=== PATIENT | male | born 1940 | race Caucasian/White ===

== ENCOUNTER → 2017-05-09 | Outpatient (CLI) | payer MEDICARE ==
[~2017-05-09] MED LIST: DICL1CAP4 PO; DILA2TAB4 PO; IBUP200C PO; LISI10TA PO; LOVA20TA PO; MAPA500T PO; TAMS5CAP PO; TURM1CAP6 PO
[2017-05-09 12:09] LABS: AUTOMATED NEUTROPHIL # 4.7 TH/MM3 (1.8-7.7); BASOPHIL % 0.4 % (0.0-2.0); EOSINOPHIL # 0.2 TH/MM3 (0-0.4); EOSINOPHIL % 2.1 % (0.0-4.0); HEMATOCRIT 45.2 % (39.0-51.0); HEMOGLOBIN 15.5 GM/DL (13.0-17.0); LYMPH % 24.5 % (9.0-44.0); LYMPHOCYTE # 1.8 TH/MM3 (1.0-4.8); MEAN CELL VOLUME 92.9 FL (80.0-100.0); MEAN CORPUSCULAR HEMOGLOBIN 31.8 PG (27.0-34.0); MEAN CORPUSCULAR HGB CONC 34.2 % (32.0-36.0); MEAN PLATELET VOLUME 6.9 FL (7.0-11.0); MONO % 10.2 % (0.0-8.0); MONOCYTE # 0.8 TH/MM3 (0-0.9); NEUT % 62.8 % (16.0-70.0); PLATELET COUNT 266 TH/MM3 (150-450); RED BLOOD COUNT 4.86 MIL/MM3 (4.50-5.90); WHITE BLOOD COUNT 7.4 TH/MM3 (4.0-11.0)
[2017-05-09 12:20] LABS: BILIRUBIN, URINE NEG (NEG); BLOOD, URINE NEG (NEG); GLUCOSE,URINE NEG (NEG); KETONE, URINE NEG (NEG); MUCUS URINE FEW /lpf (OCC); NITRITE,URINE NEG (NEG); PH, URINE 7.5 (5.0-8.5); URINE COLOR LIGHT-YELLOW (YELLW/STRAW); URINE LEUKOCYTE ESTERASE NEG (NEG)
[2017-05-09 12:29] LABS: ALBUMIN 4.1 GM/DL (3.4-5.0); ALT (GPT) 20 U/L (12-78); AST (GOT) 14 U/L (15-37); BICARBONATE 31.9 MEQ/L (21.0-32.0); BLOOD UREA NITROGEN 14 MG/DL (7-18); CALCIUM 9.3 MG/DL (8.5-10.1); CHLORIDE 99 MEQ/L (98-107); CREATININE 0.91 MG/DL (0.60-1.30); GLOMERULAR FILTRATION RATE 81 ML/MIN (>89); GLUCOSE,FASTING 95 MG/DL (74-99); SODIUM (NA) 134 MEQ/L (136-145)
[2017-05-09 12:32] LABS: ALKALINE PHOSPHATASE 72 U/L (45-117); TOTAL BILIRUBIN ADULT 0.4 MG/DL (0.2-1.0); TOTAL PROTEIN 7.7 GM/DL (6.4-8.2)
--- NOTE | 2017-05-09 12:39 | RADRPT ---
EXAM DATE/TIME: 05/09/2017 12:24 [facility] COMPARISON: No previous studies available for comparison. INDICATIONS : Evaluate for pneumonia, pneumothorax or communicable disease. Pre op lumbar surgery. MEDICAL HISTORY : Hypertension. SURGICAL HISTORY : None. ENCOUNTER: Initial ACUITY: 1 day PAIN SCORE: 0/10 LOCATION: Bilateral chest FINDINGS: PA and lateral views of the chest demonstrate the lungs to be symmetrically aerated without evidence of mass, infiltrate or effusion. The cardiomediastinal contours are unremarkable. Osseous structure s are intact. CONCLUSION: 1. No focal lung consolidation or effusion. No pneumothorax. Heart size within normal limits a tortuo us aorta. Mild thoracic scoliosis. Kirit Calderon MD on May 09, 2017 at 12:36 Board Certified Radiologist. This report was verified electronically.
--- NOTE | 2017-05-10 23:45 | EKG ---
Date Performed: 05/09/2017 Time Performed: 11:53:14 PTAGE: 76 years EKG: Sinus rhythm Normal ECG PREVIOUS TRACING : 10/30/2005 16.58 Compared to prior tracing no significant change DOCTOR: Zohaib Snow Interpretating Date/Time 05/10/2017 23:44:10
== END ==
LOC: CPRE 11:29
PROVIDERS: ATTEND Neurological Surgery
DX: Z01.810 Encounter for preprocedural cardiovascular examination (principal); Z01.811 Encounter for preprocedural respiratory examination; Z01.812 Encounter for preprocedural laboratory examination; Z79.01 Long term (current) use of anticoagulants
CPT/HCPCS: 36415; 71020; 80053; 81001; 85025; 85610; 85730; 93005

== ENCOUNTER → 2017-05-10 | Day surgery (SDC) | payer MEDICARE ==
[~2017-05-10] VITALS: Ht 172.7 cm; Wt 67.5 kg
[~2017-05-10] MED LIST changes: +ACETAMINOPHEN 1000 MG/100 ML 100 ML IV ONE; +ARTIFICIAL TEARS OPTH OINT 3.5 APPLIC/3.5 GM TUBO ONE; +BUPIVACAINE/EPINEPHRINE 0.5% 50 ML VIAL ONE; +CHLORHEXIDINE GLUCONATE 2 % 1 PACK (2 CLOTHS) TOPICAL PRN; +DEXAMETHASONE SOD PHOS 4 MG/ML VIAL IV ONE; +DO NOT ADM ANY ANTICOAGULANT DRUGS PRN; +GELFOAM SIZE 100 ONE; +GLYCOPYRROLATE 1 MG/5 ML SYRINGE IV PUSH ONE; +HYDROmorphone HCL 2 MG TAB PO PRN; +HYDROmorphone HCL PF 2 MG/ML VIAL ONE; +LACTATED RINGER'S 1000 ML IV PRN; +LIDOCAINE HCL 1% PF 5 ML SYRINGE OTHER ONE; +METOPROLOL TARTRATE 25 MG TAB PO PRN; +MORPHINE SULFATE 2 MG/ML INJ IV PUSH PRN; +NEOSTIGMINE 5 MG/5 ML SYRINGE IV PUSH ONE; +ONDANSETRON HCL 4 MG/2 ML VIAL IV ONE; +ONDANSETRON HCL 4 MG/2 ML VIAL IV PUSH PRN; +PHENYLEPH/NS 1000 MCG/10 ML SYR IV ONE; +PHENYLEPHRINE HCL 10 MG/ML VIAL IV ONE; +POVIDONE IODINE 5% (ANTISEPSIS KIT) 4 APPLICATIONS EACH NARE PRN; +PROPOFOL 200 MG/20 ML AMP IV ONE; +ROCURONIUM INJ 50 MG/5 ML SYRINGE IV PUSH ONE; +SODIUM CHLOR 0.9% 1000 ML INJ 1,000 ML IV SCH; +SODIUM CHLOR 0.9% 250 ML INJ 250 ML IV ONE; +SODIUM CHLORID 0.9% 500 ML IV PRN; -TAMS5CAP PO; +THROMBIN (TOPICAL) 5,000 UNIT VIAL ONE; +VANCOMYCIN HCL 1000 MG ON-CALL/NS 250 ML IV SCH; +VANCOMYCIN HCL 1000 MG VIAL ONE; +ePHEDrine/NS 25 MG/5 ML SYRINGE IV ONE; +methylPREDNISolone ACETATE 40 MG/ML VIAL ONE
--- NOTE | 2017-05-10 11:49 | PD.OP ---
MD Best Brice MD Operative Report Date of Surgery: May 10, 2017 Preoperative Diagnosis: Severe lumbar L3-4 and moderate L2-3 spinal stenosis from facet and ligamentum flavum hypertrophy; severe neurogenic claudication with a right foot drop Postoperative Diagnosis: Same Procedure: Bilateral lumbar L2, L3 and L4 decompressive laminectomies with medial facetectomy and foraminotomy; microsurgical technique Anesthesia: Gen. endotracheal by Shay saba Surgeon: Fawad Gibson M.D. Daub Color Mixer(s): Mili Josue Operation and Findings: Following administration of general endotracheal anesthesia, patient received vancomycin 1 g intravenously. Sequential compression devices were placed for DVT prophylaxis. He was then turned in prone position on Charli frame and the Will table and all pressure points adequately padded. The lumbar region was then shaved and prepped with a Betadine and ChloraPrep. Sterile draping undertaken with Ioban. Midline incision overlying the L3-L4 level was then made after infiltrating the skin with 0.5% Marcaine with epinephrine solution. The skin incision was made extending down through the fascia and then using the subperiosteal plane on the right side the muscular attachments to the spinous process and lamina were detached. Intraoperative fluoroscopy was used for level confirmation and further dissection undertaken using microtechnique with microscope magnification. The right L3 and superior portion of the L4 lamina was then drilled out and the underlying ligamentum flavum also removed. There was facet arthropathy noted and the medial portion of facet was also resected and the lateral recess decompressed. Epidural venous stasis which he with the bipolar cautery along with Gelfoam and thrombin and bone wax used at the laminotomy edges for hemostasis. The thecal sac was then gently retracted and hypertrophied facet and ligamentum flavum on the left side was also resected. There also appeared to be significant L2-3 stenosis and therefore the laminectomy was extended to involve the L2-3 level with removal of the inferior portion of the L2 lamina and L2-3 medial facetectomy foraminotomy. The spinal canal was circumferentially decompressed this point. The area was then copiously irrigated with vancomycin solution. Depo-Medrol 40 mg was injected in the epidural space. The retractors removed and the muscle fascia proximal using 2-0 Vicryl interrupted stitches. 3-0 Vicryl subcuticular stitches were also placed in an interrupted fashion and planned skin closure was with Mastisol and Steri-Strips. A sterile dressing was then applied and the patient then turned in the supine position and extubated and taken to recovery room in stable condition. There were no intraoperative complications and all sponge and needle count was correct at the end of the procedure. Estimated blood loss about 100 cc. Fawad Gibson MD May 10, 2017 11:49
--- NOTE | 2017-05-10 12:51 | RADRPT ---
EXAM DATE/TIME: 05/10/2017 09:01 [facility] COMPARISON: No previous studies available for comparison. INDICATIONS : L2-L3, L3-L4 laminectomy. Level localization. MEDICAL HISTORY : None. SURGICAL HISTORY : None. ENCOUNTER: Subsequent ACUITY: 1 day PAIN SCORE: Non-responsive. LOCATION: Lumbar spine. FINDINGS: A single magnified C-arm spot views and lateral projection of the lower lumbar spine. A dorsal skin r etractor is noted. Metallic probes are seen projecting towards the posterior elements of L4 with a se cond metallic probe projecting cephalad towards the inferior portion of L2. This nomenclature is assu basil 5 nonrib-bearing vertebral bodies. CONCLUSION: Limited image as detailed above. Hunter Simpson Jr., MD on May 10, 2017 at 12:47 Board Certified Radiologist. This report was verified electronically.
[2017-05-10 14:02] VITALS: BP 124/73; PULSE 66; RESP 20; TEMP 97.3; O2SAT 95
== END | disposition home or self-care (01) ==
LOC: HSDC 05:56
PROVIDERS: ATTEND Neurological Surgery
DX: M48.062 Spinal stenosis, lumbar region with neurogenic claudication (principal); M21.371 Foot drop, right foot; I10 Essential (primary) hypertension
CPT/HCPCS: 00630; 63047; 72020; 76000; J0131; J1030; J1100; J2370; J2405; J2710; J3370; J7050; J7120; J1170